=== PATIENT | male | born 1970 | race Two or more races ===

== ENCOUNTER 2022-03-08 10:41 | Emergency (ER) | payer OTHER ==
[~2022-03-08] VITALS: Ht 180.3 cm; Wt 99.8 kg
--- NOTE | 2022-03-08 10:55 | NUR ---
EMT YEYO Jalloh AT BEDSIDE FOR WOUND CARE
[2022-03-08] MEDS ORDERED: MORPHINE SULFATE INJ 4 MG/ML DISP.SYRIN ONE (11:14)
[2022-03-08] MEDS ORDERED: MORPHINE SULFATE INJ 2 MG/ML DISP.SYRIN ONE (11:14)
--- NOTE | 2022-03-08 11:20 | NUR ---
CLINICAL NURSING MANAGER AT BEDSIDE FOR XRAY
[2022-03-08] MEDS ORDERED: MORPHINE SULFATE INJ 2 MG/ML DISP.SYRIN IM ONE (11:30)
--- NOTE | 2022-03-08 11:40 | NUR ---
PT SIGNED CONSENT FOR CLOSED REDUCTION OF LEFT SHOULDER PROCEDURE.
[2022-03-08] MEDS ORDERED: PROPOFOL 20 ML IV ONE (11:43)
--- NOTE | 2022-03-08 12:03 | NUR ---
RADIOLOGY BACK AT BEDSIDE FOR POST REDUCTION XRAY.
[2022-03-08] MEDS ORDERED: PROPOFOL 200 MG/20 ML VIAL IV ONE (12:30)
[2022-03-08] MEDS ORDERED: HYDR-3980 PO (12:45)
--- NOTE | 2022-03-08 12:57 | NUR ---
IV removed. Catheter intact and site benign. Pressure and 4x4 applied to site. No bleeding noted.Patient discharged to home in stable condition. Written and verbal after care instructions given. Patient verbalizes understanding of instruction.
[2022-03-08 13:09] VITALS: BP 130/95
== END 2022-03-08 13:10 | disposition home or self-care (01) ==
LOC: ER 10:45
DX: S43.005A Unspecified dislocation of left shoulder joint, initial encounter (principal); S50.811A Abrasion of right forearm, initial encounter; V23.9XXA Unspecified motorcycle rider injured in collision with car, pick-up truck or van in traffic accident, initial encounter; Y93.I9 Activity, other involving external motion; Y92.89 Other specified places as the place of occurrence of the external cause; Y99.8 Other external cause status
CPT/HCPCS: 99285; 23650; 99152; 73060; 73030 ×2; 96372; J2704; J2270 ×2; A6403; G0500